=== PATIENT | male | born 2000 | race Caucasian/White ===

== ENCOUNTER 2019-12-06 08:46 | Emergency (ER) | payer OTHER ==
[2019-12-06] MEDS ORDERED: ONDANSETRON 4 MG/2 ML VIAL IVP STA (09:15)
[2019-12-06] MEDS ORDERED: SODIUM CHLORIDE 0.9% 1,000 ML IV STA (09:17)
--- NOTE | 2019-12-06 09:20 | ED Physician Documentation ---
PD HPI ABD PAIN - Stated complaint Stated Complaint: ABD PX - Chief complaint Chief Complaint: Abd Pain - History obtained from History obtained from: Patient - Additional information Additional information: Patient comes emergency department complaining of abdominal pain and nausea that started last night. Patient states that he had been feeling fine all day and had potatoes au gratin for lunch. However, he had Hashbrowns with "lots of butter" for dinner, and immediately began to feel unwell. He states he noticed bloating and nausea and pain that stretched across his mid abdomen. Patient sta cody that he was up most of the night feeling nauseated and uncomfortable, but was never able to vomit. The patient states he felt as though he should have a bowel movement but only produced a small 1. The patient states that he continued to have the band of discomfort around his abdomen. The patient finally went to sleep around 4:00 this morning, but when he woke up, he felt the symptoms were still there and decided to come here. He states his nausea had improved slightly but that when he drove here in his car, the motion of the car made the nausea worse again. Patient states that he has suspected that he has lactose intolerance, but that the potatoes au gratin were made with lactose-free milk. He does not have a known family history of gallbladder disease. His father had ulcers in his 20s, but was drinking heavy amounts of coffee time. Patient is otherwise healthy. He states he has never had anything like this happen before. No fevers or chills. No sick contacts. No other complaints at this time. Review of Systems Ten Systems: 10 systems reviewed and negative Constitutional: reports: Reviewed and negative Eyes: reports: Reviewed and negative Ears: reports: Reviewed and negative Nose: reports: Reviewed and negative Throat: reports: Reviewed and negative Cardiac: reports: Reviewed and negative Respiratory: reports: Reviewed and negative GI: reports: Abdominal Pain, Nausea, Vomiting, Constipation : reports: Reviewed and negative Skin: reports: Reviewed and negative Musculoskeletal: reports: Reviewed and negative Neurologic: reports: Reviewed and negative Psychiatric: reports: Reviewed and negative Endocrine: reports: Reviewed and negative Immunocompromised: reports: Reviewed and negative PD PAST MEDICAL HISTORY - Past Medical History Past Medical History: No Cardiovascular: None Respiratory: None Neuro: None Endocrine/Autoimmune: None GI: None : None HEENT: None Psych: None Musculoskeletal: None Derm: None - Past Surgical History Past Surgical History: No - Present Medications Home Medications: Ambulatory Orders Medication Instructions Recorded Confirmed Ondansetron Odt [Zofran] 4 mg TL Q6H PRN #10 tablet 12/06/19 - Allergies Allergies/Adverse Reactions: Allergies Allergy/AdvReac Type Severity Reaction Status Date / Time No Known Drug Allergies Allergy Verified 12/06/19 08:50 - Social History Does the pt smoke?: No Smoking Status: Never smoker Does the pt drink ETOH?: No Does the pt have substance abuse?: No - Immunizations Immunizations are current?: Yes PD ED PE NORMAL - Vitals Vital signs reviewed: Yes - General General: Alert and oriented X 3, No acute distress, Well developed/nourished - HEENT HEENT: Atraumatic, PERRL, EOMI, Moist mucous membranes - Neck Neck: Supple, no meningeal sign - Cardiac Cardiac: RRR, No murmur - Respiratory Respiratory: No respiratory distress, Clear bilaterally - Abdomen Abdomen: Soft, Non distended, Other (Moderate tenderness across the epigastric and medial left and right upper quadrants. Moderate tenderness across the low abdomen, left slightly greater than right. No rebound or guarding.) - Derm Derm: Warm and dry - Extremities Extremities: No deformity - Neuro Neuro: Alert and oriented X 3 - Psych Psych: Normal mood, Normal affect Results - Vitals Vitals: Vital Signs - 24 hr 12/06/19 12/06/19 12/06/19 08:52 08:59 10:29 Temperature 36.9 C 37.1 C Heart Rate 58 L 64 56 L Respiratory 16 16 14 Rate Blood Pressure 133/82 H 122/90 H 117/90 H O2 Saturation 100 100 100 Oxygen O2 Source Room air - Labs Labs: Laboratory Tests 12/06/19 12/06/19 09:23 09:23 WBC 4.4 L RBC 5.75 Hgb 16.2 Hct 47.7 MCV 83.0 MCH 28.2 MCHC 34.0 RDW 11.9 L Plt Count 220 MPV 9.4 Neut # (Auto) 2.3 Lymph # (Auto) 1.7 Orange # (Auto) 0.3 Eos # (Auto) 0.0 Baso # (Auto) 0.0 Absolute Nucleated RBC 0.00 Nucleated RBC % 0.0 Sodium 136 Potassium 3.9 Chloride 102 Carbon Dioxide 27 Anion Gap 7.0 BUN 11 Creatinine 0.8 Estimated GFR (MDRD) 123 Glucose 111 H Calcium 9.6 Total Bilirubin 1.1 H AST 19 ALT 25 Alkaline Phosphatase 54 Total Protein 8.0 Albumin 5.0 Globulin 3.0 Albumin/Globulin Ratio 1.7 Lipase 32 - Rads (name of study) acute abdominal XR series Radiology: Final report received, EMP read indepedently, See rad report (Obstipation) abdominal US, limited Radiology: Final report received, EMP read indepedently, See rad report (neg) PD MEDICAL DECISION MAKING - ED course Complexity details: reviewed results, re-evaluated patient, considered differential, d/w patient ED course: The patient was treated symptomatically with IV fluids and Zofran, and worked up with labs, urinalysis, acute abdominal x-ray series, and ultrasound of the gallbladder. The patient's work-up, overall, was negative, the patient was found to have obstipation on his acute abdominal x-ray series. I discussed with the patient the findings and that he may have a viral gastritis combined with his constipation. The patient reported that after IV fluids and Zofran, he did not really notice much improvement. However, the patient was stable and no emergent condition had been identified, and he was agreeable to discharge home. We have discussed home management of the symptoms, as well as the usual indications for return. Departure - Departure Disposition: 01 Home, Self Care Clinical Impression: Nausea Constipation Qualifiers: Constipation type: unspecified constipation type Qualified Code(s): K59.00 - Constipation, unspecified Abdominal pain Qualifiers: Abdominal location: generalized Qualified Code(s): R10.84 - Generalized abdom inal pain Condition: Stable Instructions: ED Abdominal Pain Unkn Cause, ED Constipation, ED Nausea Vomiting Prescriptions: Ondansetron Odt [Zofran] 4 mg TL Q6H PRN #10 tablet PRN Reason: Nausea / Vomiting Comments: Your labs today look very good, and your ultrasound is negative. Your abdominal x-ray series shows concentration of stool and constipation in your large intestine. This is certainly at least part of the reason for your discomfort. Please be sure to eat plenty of foods that are high in fiber, such as fresh fruits and vegetables and whole grains. Until you are able to have a good bowel movement, please avoid processed/refined foods and very starchy foods, such as pasta, rice, or potatoes. You may buy an [id number] laxative to help move your bowels as well, but most likely, you can clear the constipation with a high-fiber diet. Discharge Date/Time: 12/06/19 10:31
[2019-12-06 09:29] LABS: BASOPHILS % (AUTO) 0.5 %; EOSINOPHILS % (AUTO) 0.9 %; HGB - HEMOGLOBIN 16.2 g/dL (14.0-18.0); LYMPHOCYTES # (AUTO) 1.7 10^3/uL (1.5-3.5); MEAN CORPUSCULAR HEMOGLOBIN 28.2 pg (27.0-31.0); MEAN PLATELET VOLUME 9.4 fL (7.4-11.4); MONOCYTES # (AUTO) 0.3 10^3/uL (0.0-1.0); MONOCYTES % (AUTO) 6.9 %; NEUTROPHILS # (AUTO) 2.3 10^3/uL (1.5-6.6); NEUTROPHILS % (AUTO) 53.5 %; PLT - PLATELET COUNT 220 10^3/uL (130-450); RED BLOOD COUNT 5.75 10^6/uL (4.70-6.10); RED CELL DISTRIBUTION WIDTH 11.9 % (12.0-15.0); WHITE BLOOD COUNT 4.4 x10^3/uL (4.8-10.8)
[2019-12-06 09:43] LABS: ALBUMIN/GLOBULIN RATIO 1.7 (1.0-2.2); BILIRUBIN,TOTAL 1.1 mg/dL (0.2-1.0); CALCIUM 9.6 mg/dL (8.5-10.3); CREATININE 0.8 mg/dL (0.6-1.2)
--- NOTE | 2019-12-06 09:51 | XRAY Report ---
PROCEDURE: Abdomen Acute INDICATIONS: abdominal pain TECHNIQUE: One view chest and two views of the abdomen were acquired. COMPARISON: None. FINDINGS: Surgical changes and devices: None. Chest: Lungs are clear. Heart size is normal. No pleural effusions. No pneumoperitoneum. Abdomen: Bowel gas pattern is normal except for mild to moderate colonic obstipation over the pelvis . No suspicious calcifications. Visualized solid organ contours appear normal. Bones: No suspicious bony lesions. IMPRESSION: Mild to moderate colonic obstipation over the pelvis, no sign of intestinal obstruction or perforation found. Reviewed by: Gurvinder Luke MD on 12/06/2019 9:50 AM PDT Approved by: Gurvinder Luke MD on 12/06/2019 9:50 AM PDT Station ID: [id number]
--- NOTE | 2019-12-06 10:26 | Ultrasound Report ---
PROCEDURE: Abdomen Limited INDICATIONS: upper abdominal pain, nausea TECHNIQUE: Real-time focused scanning was performed of the abdomen, with image documentation. COMPARISON: Plain film of abdomen same day. FINDINGS: The liver appears normal in size and homogeneous in echotexture, mildly hyperechoic consist ent with fatty infiltration. No intrahepatic or extrahepatic biliary dilatation is present with the c ommon duct measuring up to 2.7 mm. The gallbladder appears normal as does the pancreas and the right kidney appears free of hydronephrosis or nephrolithiasis. IMPRESSION: Normal limited ultrasound of the right upper quadrant, source of pain in this area is no t identified. Reviewed by: Gurvinder Luke MD on 12/06/2019 10:25 AM PDT Approved by: Gurvinder Luke MD on 12/06/2019 10:25 AM PDT Station ID: [id number]
[2019-12-06 10:29] VITALS: BP 117/90
== END 2019-12-06 10:31 | disposition home or self-care (01) ==
LOC: ED 08:46
DX: R10.84 Generalized abdominal pain (principal); R11.0 Nausea; K59.00 Constipation, unspecified
CPT/HCPCS: 36415; 74022; 76705; 80053; 83690; 85025; 96361; 96374; 99284

== ENCOUNTER 2020-12-31 13:20 | Emergency (ER) | payer OTHER ==
--- NOTE | 2020-12-31 14:53 | ED Physician Documentation ---
PD HPI BACK PAIN - Stated complaint Stated Complaint: BACK PX - Chief complaint Chief Complaint: Back Pain - History obtained from History obtained from: Patient - History of Present Illness Timing - onset: How many months ago (has had right low back pain for few months without notable initial injury. Had pain worse at times. Has limited his working out and lifting but still hurts with certain particular movements. The past day with more consistent pain with any movements.) Timing - details: Gradual onset, Still present (more consistent the past couple of days.), Intermittant Location: Lower, Right Quality: Pain Associated symptoms: No: Fever, Weakness, Numbness Worsened by: Movement, Lifting Contributing factors: No: Trauma (no injury with initial onset of pains. Had been to [employer] yesterday and his back hurting more. No noted fall, injuries yesterday.) Similar symptoms before: Has not had sx before Recently seen: Not recently seen Review of Systems Constitutional: denies: Fever, Chills Nose: denies: Rhinorrhea / runny nose, Congestion Throat: denies: Sore throat Respiratory: denies: Cough GI: denies: Abdominal Pain, Nausea, Vomiting Skin: denies: Rash, Lesions Neurologic: denies: Focal weakness, Numbness PD PAST MEDICAL HISTORY - Past Medical History Cardiovascular: None Respiratory: None Neuro: None Endocrine/Autoimmune: None GI: None : None HEENT: None Psych: None Musculoskeletal: None Derm: None - Past Surgical History Past Surgical History: No - Present Medications Home Medications: Ambulatory Orders Medication Instructions Recorded Confirmed Meloxicam [Mobic] 7.5 mg PO BID 10 Days #20 tablet 12/31/20 tiZANidine [Zanaflex] 4 mg PO Q8H PRN #25 tablet 12/31/20 - Allergies Allergies/Adverse Reactions: Allergies Allergy/AdvReac Type Severity Reaction Status Date / Time No Known Drug Allergies Allergy Verified 12/31/20 13:33 - Social History Does the pt smoke?: No Smoking Status: Never smoker Does the pt drink ETOH?: No Does the pt have substance abuse?: No - Immunizations Immunizations are current?: Yes PD ED PE NORMAL - Vitals Vital signs reviewed: Yes - General General: Alert and oriented X 3, Well developed/nourished, Other (guarded ROM low back with pain right iliac crest area. ) - Abdomen Abdomen: Soft, Non tender - Back Back: No CVA TTP, No spinal TTP (not tender in spine directly. Some tender focally right iliac crest area and in muscle. ) - Derm Derm: Normal color, Warm and dry, No rash - Neuro Neuro: Alert and oriented X 3, No motor deficit, No sensory deficit, Normal speech, Other (normal knee reflexes. ) Results - Vitals Vitals: Oxygen O2 Source Room air - Rads (name of study) lumbar xray Radiology: Prelim report reviewed (normal), See rad report Procedures - General procedure General procedure: Trigger point injection right lower lumbar area toward iliac crest with lidocaine and Kenalog. No complications. PD MEDICAL DECISION MAKING - ED course Complexity details: reviewed results (lumbar xray normal. ), considered differential (seems muscular strain low back pain, but had been at [employer] (no fall nor injury per se, but still compressive loading). ), d/w patient Departure - Departure Disposition: 01 Home, Self Care Clinical Impression: Low back strain Qualifiers: Encounter type: initial encounter Qualified Code(s): S39.012A - Strain of muscle, fascia and tendon of lower back, initial encounter Condition: Stable Record reviewed to determine appropriate education?: Yes Instructions: ED Sprain Strain Lumbar Follow-Up: [facility] [Provider Group] Prescriptions: Meloxicam [Mobic] 7.5 mg PO BID 10 Days #20 tablet tiZANidine [Zanaflex] 4 mg PO Q8H PRN #25 tablet PRN Reason: Spasms Comments: Light duty with limited lifting bending and twisting. No heavy working out for the next 5 days. Gentle stretching and light activity is good. Heat and gentle stretching for the low back. Massage is good as well. Use meloxicam twice daily for the next 7 to 10 days with food. Also tizanidine muscle relaxant for stiffness and spasms. Add Tylenol every 4 hours if needed for pain. [place] 5 [place], call for an appointment. I transmitted your prescriptions to [facility] pharmacy in [place]. Forms: Activity restrictions Discharge Date/Time: 12/31/20 16:00
[2020-12-31] MEDS ORDERED: IBUPROFEN 600 MG TABLET PO STA (15:13)
[2020-12-31] MEDS ORDERED: methocarbamoL 500 MG TABLET PO STA (15:14)
[2020-12-31] MEDS ORDERED: TRIAMCINOLONE 40 MG/ML VIAL IM STA (15:14)
--- NOTE | 2020-12-31 15:47 | XRAY Report ---
PROCEDURE: Lumbar Spine 2 View INDICATIONS: low back pain with movement TECHNIQUE: 2 views of the lumbar spine were acquired. COMPARISON: Correlation is made with abdominal plain films, 12/06/2019 FINDINGS: Bones: This patient has transitional anatomy. For the purposes of this examination, the level with la st well-developed pair ribs is considered to be T12. By this summary scheme, there are vestigial ribs seen at the L1 level. There is a vestigial disc seen at S1-S2. There is normal bony alignment. No vertebral body compression fractures. No suspicious bony lesions . The disc heights are well preserved. Soft tissues: Overlying bowel gas pattern is normal. No suspicious soft tissue calcifications. IMPRESSION: No acute abnormality is seen by plain film. Transitional lumbar anatomy. Reviewed by: Main Castro MD on 12/31/2020 2:45 PM AKROSA Approved by: Main Castro MD on 12/31/2020 2:45 PM MAHNAZ Station ID: [id number]
[2020-12-31 16:00] VITALS: BP 116/63
== END 2020-12-31 16:00 | disposition home or self-care (01) ==
LOC: ED 13:20
DX: S39.012A Strain of muscle, fascia and tendon of lower back, initial encounter (principal)
CPT/HCPCS: 20552; 72100; 99283; A9270

== ENCOUNTER 2021-04-26 08:00 | Outpatient (CLI) | payer OTHER | END 2021-04-26 23:59 | LOC: LAB.N 08:00 | PROVIDERS: ATTEND Physician Assistant | DX: R53.83 Other fatigue (principal); Z20.822 Contact with and (suspected) exposure to COVID-19 ==

== ENCOUNTER 2021-06-14 06:43 | Emergency (ER) | payer OTHER ==
[2021-06-14 06:53] VITALS: BP 140/80
[2021-06-14] MEDS ORDERED: FAMOTIDINE 20 MG TABLET PO STA (07:21)
[2021-06-14] MEDS ORDERED: ONDANSETRON ODT 4 MG TABLET TL STA (07:21)
--- NOTE | 2021-06-14 07:26 | ED Physician Documentation ---
PD HPI URI - Stated complaint Stated Complaint: STOMACH/HEAD PX/NAUSEA - Chief complaint Chief Complaint: General - History obtained from History obtained from: Patient - History of Present Illness Timing - onset: How many days ago (3) Timing duration: Days (3) Timing details: Abrupt onset, Still present Associated symptoms: Fever, Chills, Nasal congestion, NVD (initially nausea/vomiting several times/diarrhea for a day. Now with nausea and some gastric pains with eating.). No: Dry cough, Productive cough Contributing factors: Sick contact (his girlfriend with similar symptoms started the day prior to his and she is still sick.). No: Unimmunized (has had COVID vaccine.) Improves by: Rest, Medication (Excedrin and TYlenol for chils and headache. No meds for nausea.) Similar symptoms before: Has not had sx before Recently seen: Not recently seen Review of Systems Constitutional: reports: Fever, Chills, Myalgias, Fatigue (largest symptom) Nose: reports: Congestion. denies: Rhinorrhea / runny nose Throat: reports: Sore throat Cardiac: denies: Chest pain / pressure Respiratory: denies: Cough GI: reports: Nausea, Vomiting, Diarrhea. denies: Abdominal Pain Neurologic: reports: Generalized weakness, Headache. denies: Near syncope PD PAST MEDICAL HISTORY - Past Medical History Cardiovascular: None Respiratory: None Neuro: None Endocrine/Autoimmune: None GI: None : None HEENT: None Psych: None Musculoskeletal: None Derm: None - Past Surgical History Past Surgical History: No - Present Medications Home Medications: Ambulatory Orders Medication Instructions Recorded Confirmed Famotidine [Pepcid] 20 mg PO BID #15 tablet 06/14/21 Ondansetron Odt [Zofran] 4 mg TL Q6H PRN #15 tablet 06/14/21 - Allergies Allergies/Adverse Reactions: Allergies Allergy/AdvReac Type Severity Reaction Status Date / Time No Known Drug Allergies Allergy Verified 06/14/21 06:54 - Social History Does the pt smoke?: No Smoking Status: Never smoker Does the pt drink ETOH?: No Does the pt have substance abuse?: No - Immunizations Immunizations are current?: Yes PD ED PE NORMAL - Vitals Vital signs reviewed: Yes - General General: Alert and oriented X 3, No acute distress, Well developed/nourished - HEENT HEENT: Moist mucous membranes, Pharynx benign - Neck Neck: Supple, no meningeal sign, No adenopathy - Cardiac Cardiac: RRR, No murmur - Respiratory Respiratory: Clear bilaterally - Abdomen Abdomen: Normal bowel sounds, Soft, Non distended, No organomegaly, Other (mild tender without guarding epigastric and RUQ area. No percussion tenderness over GB. ) - Derm Derm: Normal color, Warm and dry, No rash - Extremities Extremities: Normal ROM s pain - Neuro Neuro: Alert and oriented X 3, No motor deficit, Normal speech Results - Vitals Vitals: Vital Signs - 24 hr 06/14/21 06:48 Temperature 36.4 C L Heart Rate 68 Respiratory 18 Rate Blood Pressure 140/80 H O2 Saturation 100 Oxygen O2 Source Room air PD MEDICAL DECISION MAKING - ED course Complexity details: considered differential, d/w patient Departure - Departure Disposition: 01 Home, Self Care Clinical Impression: Acute viral syndrome Condition: Stable Record reviewed to determine appropriate education?: Yes Instructions: ED Viral Syndrome Follow-Up: [facility] [Provider Group] Prescriptions: Famotidine [Pepcid] 20 mg PO BID #15 tablet Ondansetron Odt [Zofran] 4 mg TL Q6H PRN #15 tablet PRN Reason: Nausea / Vomiting Comments: Rest and hydrate well. Small frequent fluids. Ondansetron if needed for nausea every 4-6 hours. Famotidine twice daily acid reducing medicine for the next week. This should help your stomach recover a little bit better. Continue with Tylenol or Excedrin Migraine as needed. Off work today in the next 1 or 2 days due to ongoing illness. I transmitted your prescription to the [facility] outpatient pharmacy. Forms: Activity restrictions Discharge Date/Time: 06/14/21 07:38
== END 2021-06-14 07:38 | disposition home or self-care (01) ==
LOC: ED 06:43
DX: B34.9 Viral infection, unspecified (principal); Z20.822 Contact with and (suspected) exposure to COVID-19
CPT/HCPCS: 87635; 99282; 99283; A9270; Q0162

== ENCOUNTER 2021-07-24 08:29 | Emergency (ER) | payer OTHER ==
[2021-07-24 08:39] VITALS: BP 126/83
--- OUTSIDE RECORDS SUMMARY | 2021-07-24 08:46 | EXTERNAL MEDICAL SUMMARY RPT | Continuity of Care Document ---
:2000 Author Organization [facility] Address [address] [place] [address] Phone Care Team Providers Name Role Phone RN Unavailable Unavailable PA-C Unavailable Unavailable PA-C Unavailable Unavailable Allergies No information. Encounters No information. Medications No information. Problems date description facility 20210426 Other malaise and fatigue All 20210426 Other fatigue All 20210426 Fatigue All 20210426 Alcohol use All 20210426 Unspecified viral infection All 20210426 Never smoker All 20210426 Details of drug misuse behavior All 20210426 Viral syndrome All 20210426 Viral infection, unspecified All 20210426 COVID19 Testing All 20210426 Alcohol intake All Procedures date description facility 20210426 COVID19 Testing All 20210426 POC STREP TEST All 20210426 COVID19 Testing All 20210426 POC STREP TEST All 20210426 COVID19 Testing All 20210426 POC STREP TEST All Results test status date ordered by attending specimen adarsh e _2018NCoV_COVID-19_Lab unknown 20210426 unknown unknown unknown _Test_Result_Text_ Streptococcus_pyogenes unknown 20210426 unknown unknown unknown _DNA_Presence_in_Throat _by_NAA_with_probe_dete ction Microbial_identificati unknown 20210426 unknown unknown unknown on_kit_rapid_strep_meth od COVID19_REFERENCE_TES unknown 20210426 unknown unknown unknown T T unknown 20210426 unknown unknown unknown _2018NCoV_COVID-19_Lab unknown 20210426 unknown unknown unknown _Test_Result_Text_ Streptococcus_pyogenes unknown 20210426 unknown unknown unknown _DNA_Presence_in_Throat _by_NAA_with_probe_dete ction Microbial_identificati unknown 20210426 unknown unknown unknown on_kit_rapid_strep_meth od COVID19_REFERENCE_TES unknown 20210426 unknown unknown unknown T T unknown 20210426 unknown unknown unknown Streptococcus_pyogenes unknown 20210426 unknown unknown unknown _DNA_Presence_in_Throat _by_NAA_with_probe_dete ction Microbial_identificati unknown 20210426 unknown unknown unknown on_kit_rapid_strep_meth od facility observation status value reference units lab abnor mal line range code notes All _2019NCoV_CO unknown NEGATIVE unknown _6659 unkno wn unknown VID-19_Lab_Te 97 st_Result_Tex t_ All Streptococcu unknown Neg unknown _6048 unknown unknown s_pyogenes_DN 9-2 A_Presence_in _Throat_by_NA A_with_probe_ detection All Microbial_id unknown Neg unknown _3554 unknown unknown entification_ kit_rapid_str ep_method All COVID-19_REF unknown NEGATIVE unknown COVID unkno wn unknown ERENCE_TEST 19.REF All T unknown NEGATIVE unknown COVID unknown un known -19 All _2019NCoV_CO unknown NEGATIVE unknown _6659 unkno wn unknown VID-19_Lab_Te 97 st_Result_Tex t_ All Streptococcu unknown Neg unknown _6048 unknown unknown s_pyogenes_DN 9-2 A_Presence_in _Throat_by_NA A_with_probe_ detection All Microbial_id unknown Neg unknown _3554 unknown unknown entification_ kit_rapid_str ep_method All COVID-19_REF unknown NEGATIVE unknown COVID unkno wn unknown ERENCE_TEST 19.REF All T unknown NEGATIVE unknown COVID unknown un known -19 All Streptococcu unknown Neg unknown _6048 unknown unknown s_pyogenes_DN 9-2 A_Presence_in _Throat_by_NA A_with_probe_ detection All Microbial_id unknown Neg unknown _3554 unknown unknown entification_ kit_rapid_str ep_method Vital Signs date measurement value source 20210426 weight_standard 170 lb 20210426 weight_metric 77.11 kg 20210426 temperature_standard 98.1 F 20210426 temperature_metric 36.72 C 20210426 respiration_rate 18 /min 20210426 height_standard 74 in 20210426 height_metric 187.96 cm 20210426 heart_rate 61 /min 20210426 BP_systolic 120 mm[Hg] 20210426 BP_diastolic 78 mm[Hg] 20210426 BMI 21.91 kg/m2 20210426 weight_standard 170 lb 20210426 weight_metric 77.11 kg 20210426 temperature_standard 98.1 F 20210426 temperature_metric 36.72 C 20210426 respiration_rate 18 /min 20210426 height_standard 74 in 20210426 height_metric 187.96 cm 20210426 heart_rate 61 /min 20210426 BP_systolic 120 mm[Hg] 20210426 BP_diastolic 78 mm[Hg] 20210426 BMI 21.91 kg/m2 20210426 weight_standard 170 lb 20210426 weight_metric 77.11 kg 20210426 temperature_standard 98.1 F 20210426 temperature_metric 36.72 C 20210426 respiration_rate 18 /min 20210426 height_standard 74 in 20210426 height_metric 187.96 cm 20210426 heart_rate 61 /min 20210426 BP_systolic 120 mm[Hg] 20210426 BP_diastolic 78 mm[Hg] 20210426 BMI 21.91 kg/m2
--- NOTE | 2021-07-24 10:04 | ED Physician Documentation ---
PD HPI ABD PAIN - Stated complaint Stated Complaint: NAUSEA/VOMITING/ABD PX - Chief complaint Chief Complaint: Abd Pain - History obtained from History obtained from: Patient - History of Present Illness Timing - onset: How many days ago (initially 5 days ago with abrupt NVD for a day-two, then seemed some improving, and so attempting to be back to regular food and activity, but with nausea and loose stools back again the past day. Intermittent abd cramps, but no consistent pain.) Timing - duration: Days Timing - details: Abrupt onset, Still present, Waxing and waning Quality: Cramping (intermittent) Location: All over / everywhere Improved by: Other (improves after diarrheal BM.). No: Vomiting Worsened by: Eating Associated symptoms: Nausea, Vomiting, Diarrhea, Loss of appetite. No: Fever, Hematemesis, Hematochezia, Dysuria Similar symptoms before: Has not had sx before Recently seen: Not recently seen Review of Systems Constitutional: reports: Myalgias, Fatigue. denies: Fever, Chills Nose: denies: Rhinorrhea / runny nose, Congestion Throat: denies: Sore throat Respiratory: denies: Cough GI: reports: Nausea, Vomiting, Diarrhea. denies: Hematemesis, Bloody / black stool Neurologic: reports: Generalized weakness. denies: Near syncope, Altered mental status, Headache PD PAST MEDICAL HISTORY - Past Medical History Cardiovascular: None Respiratory: None Neuro: None Endocrine/Autoimmune: None GI: None : None HEENT: None Psych: None Musculoskeletal: None Derm: None - Past Surgical History Past Surgical History: No - Present Medications Home Medications: Ambulatory Orders Medication Instructions Recorded Confirmed Diphenoxylate/Atropine [Lomotil] 1 each PO QID PRN #12 tablet 07/24/21 L.acid/L.casei/B.bif/B.steffi/Fos 1 each PO TID 7 Days #20 cap 07/24/21 [Probiotic Blend Capsule] Ondansetron Odt [Zofran] 4 mg TL Q6H PRN #10 tablet 07/24/21 - Allergies Allergies/Adverse Reactions: Allergies Allergy/AdvReac Type Severity Reaction Status Date / Time No Known Drug Allergies Allergy Verified 07/24/21 08:34 - Social History Does the pt smoke?: No Smoking Status: Never smoker Does the pt drink ETOH?: No Does the pt have substance abuse?: No - Immunizations Immunizations are current?: Yes PD ED PE NORMAL - Vitals Vital signs reviewed: Yes - General General: Alert and oriented X 3, No acute distress, Well developed/nourished - Neck Neck: Supple, no meningeal sign, No adenopathy - Cardiac Cardiac: RRR, No murmur - Respiratory Respiratory: Clear bilaterally - Abdomen Abdomen: Soft, Non tender, Non distended, No organomegaly. No: Normal bowel sounds (decreased) - Back Back: No CVA TTP - Derm Derm: Normal color, Warm and dry - Extremities Extremities: Normal ROM s pain - Neuro Neuro: Alert and oriented X 3, No motor deficit, Normal speech Results - Vitals Vitals: Oxygen O2 Source Room air PD MEDICAL DECISION MAKING - ED course Complexity details: considered differential (seems likely viral GE, with vomiting and diarrhea, but no focal abd pain nor tenderness. ), d/w patient Departure - Departure Disposition: 01 Home, Self Care Clinical Impression: Nausea, vomiting and diarrhea, Viral gastroenteritis Condition: Stable Record reviewed to determine appropriate education?: Yes Instructions: ED Diarrhea Viral Prescriptions: Diphenoxylate/Atropine [Lomotil] 1 each PO QID PRN #12 tablet PRN Reason: Diarrhea L.acid/L.casei/B.bif/B.steffi/Fos [Probiotic Blend Capsule] 1 each PO TID 7 Days #20 cap Ondansetron Odt [Zofran] 4 mg TL Q6H PRN #10 tablet PRN Reason: Nausea / Vomiting Comments: Small frequent fluids. Initially bland food with carbohydrates and starches and some proteins. Avoid milk products and legumes initially. Progress diet as tolerated over the next couple of days. Ondansetron if needed for nausea. Lomotil as needed for diarrhea. Add Tylenol or ibuprofen if needed for cramps or pains. It seems likely to be a viral gastroenteritis with persistent symptoms. Part of that is from depletion of normal intestinal evita. Add a probiotic bland 3 times daily for the next week as well as probiotic foods. Off work for the next couple of days. Recheck if not improved over the next 2-3 days. In particular return if fevers, persistent vomiting, consistent pain, bloody stool, other concerns. I transmitted your prescriptions to the [facility] outpatient pharmacy. Forms: Activity restrictions Discharge Date/Time: 07/24/21 10:45
[2021-07-24] MEDS ORDERED: ONDANSETRON ODT 4 MG TABLET TL STA (10:20)
[2021-07-24] MEDS ORDERED: MAG HYDROX/AL HYDROX/SIMETH 30 ML UDC PO STA (10:21)
[2021-07-24] MEDS ORDERED: DIPHENOX/ATROPINE 2.5/0.025 MG TABLET PO STA (10:21)
[2021-07-24] MEDS ORDERED: IBUPROFEN 400 MG TABLET PO STA (10:21)
== END 2021-07-24 10:45 | disposition home or self-care (01) ==
LOC: ED 08:29
DX: A08.4 Viral intestinal infection, unspecified (principal)
CPT/HCPCS: 99282; 99283; A9270; Q0162

== ENCOUNTER 2021-12-06 21:41 | Emergency (ER) | payer OTHER ==
--- NOTE | 2021-12-06 22:43 | ED Physician Documentation ---
History of Present Illness - Stated complaint Stated Complaint: RT FOOT PAIN - Chief complaint Chief Complaint: Ext Problem - History obtained from History obtained from: Patient - History of Present Illness Timing: Today Worsened by: weight bearing - Additonal information Additional information: woke this morning approximately 5 AM and upon bearing weight on right foot he noted pain in fourth webspace and adjacent plantar surface associated with what appeared to be a ruptured blister with scant discharge. He has not previously had similar symptoms and did not notice any problem with the foot until this morning Review of Systems Musculoskeletal: reports: Extremity pain, Pain with weight bearing PD PAST MEDICAL HISTORY - Past Medical History Cardiovascular: None Respiratory: None Neuro: None Endocrine/Autoimmune: None GI: None : None HEENT: None Psych: None Musculoskeletal: None Derm: None - Past Surgical History Past Surgical History: No - Present Medications Home Medications: Ambulatory Orders Medication Instructions Recorded Confirmed Diphenoxylate/Atropine [Lomotil] 1 each PO QID PRN #12 tablet 07/24/21 L.acid/L.casei/B.bif/B.steffi/Fos 1 each PO TID 7 Days #20 cap 07/24/21 [Probiotic Blend Capsule] Ondansetron Odt [Zofran] 4 mg TL Q6H PRN #10 tablet 07/24/21 Clotrimazole [Clotrimazole AF] 1 film TP BID #28 gm 12/06/21 - Allergies Allergies/Adverse Reactions: Allergies Allergy/AdvReac Type Severity Reaction Status Date / Time No Known Drug Allergies Allergy Verified 12/06/21 21:51 - Social History Does the pt smoke?: No Smoking Status: Never smoker Does the pt drink ETOH?: No Does the pt have substance abuse?: No - Immunizations Immunizations are current?: Yes - POLST Patient has POLST: No PD ED PE NORMAL - Vitals Vital signs reviewed: Yes - General General: Alert and oriented X 3, No acute distress, Well developed/nourished - Extremities Extremities: No tenderness to palpate, No edema PD ED PE EXPANDED - Extremities Extremities: Other (there is moist, macerated hyperketertosis of the right fourth webspace with mild erythema. there is no fluctuance or discharge. mild TTP) Results - Vitals Vitals: Oxygen O2 Source Room air PD MEDICAL DECISION MAKING - ED course Complexity details: considered differential, d/w patient ED course: findings on exam are strongly consistent with interdigital tinea pedis and without findings suggestive of bacterial infection (no discharge, fluctuance; only mild erythema and mild TTP). diagnosis d/w patient, provided rx for topical clotrimazole Departure - Departure Disposition: 01 Home, Self Care Clinical Impression: Tinea pedis Qualifiers: Laterality: right Qualified Code(s): B35.3 - Tinea pedis Condition: Good Instructions: ED Fungal Infec Athlete Foot Follow-Up: AMERICA GRAYSON MD [Primary Care Provider] - Prescriptions: Clotrimazole [Clotrimazole AF] 1 film TP BID #28 gm Comments: A prescription for an anti-fungal cream has been electronically submitted to the [facility] pharmacy. You can take tylenol or ibuprofen as needed per label instructions for pain. Use the prescribed cream twice per day for 2-4 weeks (use for minimum of 2 weeks, and then continue until one week after the rash has resolved) Forms: Activity restrictions Discharge Date/Time: 12/06/21 23:25
[2021-12-06 23:24] VITALS: BP 130/86
== END 2021-12-06 23:25 | disposition home or self-care (01) ==
LOC: ED 21:41
DX: B35.3 Tinea pedis (principal)
CPT/HCPCS: 99281

== ENCOUNTER 2022-03-17 11:42 | Emergency (ER) | payer OTHER | END 2022-03-17 12:28 | disposition left against medical advice (07) | LOC: ED 11:42 | DX: Z53.21 Procedure and treatment not carried out due to patient leaving prior to being seen by health care provider (principal) ==

== ENCOUNTER 2022-04-29 14:10 | Emergency (ER) | payer OTHER ==
[2022-04-29] MEDS ORDERED: diphenhydrAMINE INJ 50 MG/ML VIAL IVP STA (16:24)
[2022-04-29] MEDS ORDERED: KETOROLAC 30 MG/ML VIAL IVP STA (16:24)
[2022-04-29] MEDS ORDERED: SODIUM CHLORIDE 0.9% 1,000 ML IV STA (16:24)
[2022-04-29] MEDS ORDERED: PROCHLORPERAZINE 10 MG/2 ML VIAL IVP STA (16:24)
[2022-04-29] MEDS ORDERED: DEXAMETHASONE 10 MG/ML VIAL IVP STA (16:25)
--- NOTE | 2022-04-29 16:27 | ED Physician Documentation ---
PD HPI HEADACHE - Stated complaint Stated Complaint: MIGRAINE - Chief complaint Chief Complaint: Heent - History obtained from History obtained from: Patient - History of Present Illness Timing - onset: Enter time (1300), Today Timing - onset during: Rest Timing - duration: Hours Timing - details: Abrupt onset, Still present Location: Front Quality: Throbbing Associated symptoms: Stiff neck, Nausea. No: Vomiting Improved by: Rest, Dark room, Quiet Similar symptoms before: Diagnosis (migraine) Recently seen: Other (has been seeing a neurologist for migraine.) - Additional information Additional information: 21-year-old Grayson Aly has developed another migraine headache. This started about 1 PM. He does have a throbbing headache photophobia and nausea. He has not had vomiting. He indicates that he is come to the emergency department today to get a note for work. He states that he has this condition chronically and that he has previously been able to call off work when he has a migraine and stay home. 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 The patient states that he has not had migraine rescue previously. He is reporting 1-3 headaches per week and he is seeing a neurologist for evaluation and treatment. Review of Systems Constitutional: denies: Fever Eyes: reports: Photophobia. denies: Decreased vision Ears: denies: Ear pain Nose: denies: Rhinorrhea / runny nose, Congestion Throat: denies: Sore throat Cardiac: denies: Chest pain / pressure Respiratory: denies: Dyspnea, Cough GI: reports: Nausea. denies: Abdominal Pain, Vomiting Skin: denies: Rash Musculoskeletal: reports: Neck pain. denies: Back pain, Extremity pain PD PAST MEDICAL HISTORY - Past Medical History Cardiovascular: None Respiratory: None Neuro: None Endocrine/Autoimmune: None GI: None : None HEENT: None Psych: None Musculoskeletal: None Derm: None - Past Surgical History Past Surgical History: No - Present Medications Home Medications: Ambulatory Orders Medication Instructions Recorded Confirmed Diphenoxylate/Atropine [Lomotil] 1 each PO QID PRN #12 tablet 07/24/21 L.acid/L.casei/B.bif/B.steffi/Fos 1 each PO TID 7 Days #20 cap 07/24/21 [Probiotic Blend Capsule] Ondansetron Odt [Zofran] 4 mg TL Q6H PRN #10 tablet 07/24/21 Clotrimazole [Clotrimazole AF] 1 film TP BID #28 gm 12/06/21 - Allergies Allergies/Adverse Reactions: Allergies Allergy/AdvReac Type Severity Reaction Status Date / Time No Known Drug Allergies Allergy Verified 04/29/22 14:29 - Social History Does the pt smoke?: No Smoking Status: Never smoker Does the pt drink ETOH?: No Does the pt have substance abuse?: No - Immunizations Immunizations are current?: Yes - POLST Patient has POLST: No PD ED PE NORMAL - Vitals Vital signs reviewed: Yes (Bradycardic at 54) - General General: Alert and oriented X 3, Well developed/nourished, Other (Patient has bilateral lid ptosis appears photophobic in the brightly lit hallway of the emergency department.) - HEENT HEENT: Atraumatic, PERRL, EOMI - Neck Neck: Supple, no meningeal sign, No bony TTP, Other (There is mild tenderness to the right trapezius at the insertion to the occiput. There is not significant muscle tension to the lower portion of the muscle.) - Cardiac Cardiac: RRR, No murmur - Respiratory Respiratory: No respiratory distress, Clear bilaterally - Abdomen Abdomen: Soft, Non tender - Back Back: No CVA TTP, No spinal TTP - Derm Derm: Normal color, Warm and dry, No rash - Extremities Extremities: No deformity, No edema - Neuro Neuro: Alert and oriented X 3, char dust cleaner and salvager 2-12 intact, No motor deficit, No sensory deficit, Normal speech Eye Opening: Spontaneous Motor: Obeys Commands Verbal: Oriented GCS Score: 15 - Psych Psych: Normal mood, Normal affect Results - Vitals Vitals: Vital Signs - 24 hr 04/29/22 14:26 Temperature 36.4 C L Heart Rate 55 L Respiratory 16 Rate Blood Pressure 125/78 O2 Saturation 99 Oxygen O2 Source Room air PD Medical Decision Making - ED course Complexity details: considered differential, d/w patient Drug Therapy Requiring Monitoring for Toxicity: We administered Benadryl along with the Compazine in order to prevent the potential for dystonic reaction from the Compazine. ED course: 21-year-old male with a history of chronic migraine is having 1-3 headaches per week and he presents to the emergency department today with another headache. He has not had rescue previously and we have offered migraine rescue to the patient and he has excepted. We are hoping the dexamethasone will provide more prolonged relief as it has in studies. Departure - Departure Disposition: 01 Home, Self Care Clinical Impression: Nausea Migraine Qualifiers: Migraine type: with aura Status migrainosus presence: without status migrainosus Intractability: not intractable Qualified Code(s): G43.109 - Migraine with aura, not intractable, without status migrainosus Condition: Stable Instructions: ED Headache Migraine Follow-Up: MYRIAM GRAYSON DO [Primary Care Provider] - Comments: Grayson, today with the migraine rescue we have provided the expectation is less frequent headaches in the coming weeks. Follow-up with your neurologist as previously planned. Today we did find some tenderness to the insertion of the trapezius into the occiput and sometimes this is treated with Botox. Forms: Activity restrictions
[2022-04-29 17:24] VITALS: BP 135/72
== END 2022-04-29 17:24 | disposition home or self-care (01) ==
LOC: ED 14:10
DX: G43.109 Migraine with aura, not intractable, without status migrainosus (principal)
CPT/HCPCS: 96374; 96375; 99283; 99285; J1200

== ENCOUNTER 2022-10-01 08:47 | Outpatient (CLI) | payer OTHER ==
--- NOTE | 2022-10-01 14:43 | MRI Report ---
PROCEDURE: MRI brain without contrast INDICATIONS: MIGRAINE TECHNIQUE: Noncontrast axial T1 spin echo, axial T2 fast spin echo, sagittal and axial FLAIR, coronal T2 fast sp in echo, axial gradient echo, axial diffusion and ADC through the brain. COMPARISON: None. FINDINGS: Image quality: Excellent. CSF Spaces: Basal cisterns are patent. No extra-axial fluid collections. Ventricles are normal in size and shape. Brain: No intracranial masses or hemorrhage. Gaitan/white matter interface is normal. Brainstem appe ars normal. Diffusion-weighted images demonstrate no acute infarct. Normal intravascular flow voids are present. Skull and face: Calvarium has normal marrow signal. Orbits appear normal. Sinuses: Sinuses and mastoids are clear. IMPRESSION: Normal MRI of the brain Reviewed by: Ronnie Johnston MD on 10/01/2022 1:42 PM MAHNAZ Approved by: Ronnie Johnston MD on 10/01/2022 1:42 PM MAHNAZ Station ID: [id number]
== END 2022-10-01 08:48 | disposition home or self-care (01) ==
LOC: DI 08:47
PROVIDERS: ATTEND Student in an Organized Health Care Education/Training Program
DX: G43.909 Migraine, unspecified, not intractable, without status migrainosus (principal)

== ENCOUNTER 2023-07-16 14:54 | Outpatient (CLI) | payer OTHER | END 2023-07-16 14:55 | disposition home or self-care (01) | LOC: DI 14:54 | PROVIDERS: ATTEND Student in an Organized Health Care Education/Training Program | DX: I51.7 Cardiomegaly (principal) | CPT/HCPCS: 93307 ==